=== PATIENT | male | born 1960 | race Caucasian/White ===

== ENCOUNTER 2024-03-19 00:30 | Emergency (ER) | payer BC, SELFPAY ==
[2024-03-19] VITALS (18 sets, daily range): BP systolic 147–174; BP diastolic 75–113
[2024-03-19] MEDS: ADRENALIN 0.299999999999999989 MG IM (00:59)
[2024-03-19] MEDS: BENADRYL 50 MG IV (01:01)
[2024-03-19] MEDS: SOLU-MEDROL PF 125 MG IV (01:05)
[2024-03-19] MEDS: PEPCID 20 MG IV (01:08)
[2024-03-19 01:25] LABS: % Basophils 0.5 % (0-2); % Eosinophils 1.2 % (0-6); % Immature Granulocytes 0.3 % (0-0.5); % Lymphocytes 19.9 % (20.5-51.1); % Monocytes 8.2 % (1.7-9.3); % Neutrophils 69.9 % (42.2-75.2); Absolute Basophils 0.1 10^3/uL (0-0.2); Absolute Eosinophils 0.1 10^3/uL (0-0.7); Absolute Lymphocytes 1.9 10^3/uL (1.2-3.4); Absolute Monocytes 0.8 10^3/uL (0.1-0.6); Absolute Neutrophils 6.7 10^3/uL (1.4-6.5); Hematocrit 42.6 % (39.0-52.0); Hemoglobin 15.4 g/dL (13.0-18.0); Mean Corp Hgb Conc. 36.2 g/dL (33.0-37.0); Mean Corpuscular Hgb 30.9 pg (27.0-31.0); Mean Corpuscular Volume 85.4 fL (80.0-94.0); Mean Platelet Volume 10.1 fL (7.4-10.4); Nucleated Red Blood Cells % 0 % (-); Platelet Count 244 10^3/uL (130-400); Red Blood Cell Count 4.99 10^6/uL (4.70-6.10); Red Cell Dist. Width 13.3 % (11.5-14.5); White Blood Cell Count 9.7 10^3/uL (4.8-10.8)
[2024-03-19 01:38] LABS: ALT (SGPT) 25 U/L (0-50); AST (SGOT) 27 U/L (17-59); Albumin 4.6 g/dl (3.5-5.0); Blood Urea Nitrogen 14 mg/dl (9-20); Carbon Dioxide 28 mmol/L (22-30); Glucose 120 mg/dl (70-99); Potassium 3.1 mmol/L (3.5-5.1); Total Bilirubin 0.6 mg/dl (0.2-1.3); Total Protein 7.1 g/dl (6.3-8.2); eGFR > 60.00
[2024-03-19] MEDS: NSS 500 IV (02:13)
[2024-03-19 02:23] LABS: Alkaline Phosphatase 63 U/L (38-126); Calcium 10.6 mg/dl (8.4-10.2); Chloride 99 mmol/L (98-107); Sodium 137 mmol/L (135-145)
--- NOTE | 2024-03-19 02:27 | ED.GENMED ---
History of Present Illness
General
Chief Complaint: Swelling
Source: patient and spouse
Exam Limitations: none
Time Seen by Provider: 03/19/24 00:42
Nursing documentation reviewed up to this point in time: agreed with
Travel History
Have you had any contact with someone who has COVID-19?: No
Do you have any symptoms of coronavirus? Fever > 100 degrees, chills, cough, shortness of breath, sore throat, loss of taste or smell, muscle aches, or headache?: No
History of Present Illness
History of Present Illness:
63-year-old male with a past medical history of hypertension who presents to the emergency room for evaluation of tongue swelling. Patient reports onset of symptoms about 90 minutes prior to arrival and they have been constant and he feels somewhat
worsening since that time. He reports his tongue feels very dry and he has some trouble swallowing. He has not noticed any sensation of swelling in his throat and denies shortness of breath. He denies any swelling of the lips. He denies any rash
or pruritus. Denies any abdominal pain, nausea, vomiting. He denies any shortness of breath or wheezing. He denies any other complaints. He has never had the symptoms before. He denies any new medications. He says that he had some beef with
mushrooms and onions tonight which his made at home and this is not a new meal for him. No unusual food ingestions. No family history of similar reactions. He does take losartan chronically for his blood pressure.
Review of Systems
Review of Systems
All Other Systems: ROS reviewed and negative except as documented in HPI and ROS
Constitutional: Denies fever or chills
EENT: Reports other (Sensation of tongue swelling); Denies sore throat or runny nose
Respiratory: Denies cough or trouble breathing
Cardiac: Denies chest pain
ABD/GI: Denies abdominal pain, nausea or vomiting
: Denies flank pain
Skin: Denies itching or rash
Neurological: Denies dizzy or headache
Phy Exam
Physical Exam
Physical Exam:
General: Awake, alert, anxious but not in distress
Head: Normocephalic, atraumatic
Eyes: Conjunctiva normal, pupils equal round and reactive to light bilaterally
Throat: Airway intact, handling secretions, very slight swelling of the tongue but visible uvula which is midline with no swelling; no swelling of the lips; no stridor
Neck: Trachea midline, supple without meningismus
Lungs: Clear to auscultation bilaterally, no wheezing, rales, rhonchi
Heart: Tachycardia with regular rhythm, no murmurs, gallops, or rubs
Abd: Soft, non distended, nontender
Neuro: No gross deficits
Skin: no rash, no hives or provided
Extremities: No edema in extremities, warm and well-perfused
Scores
Heart Failure Risk
Heart Failure Risk Score: Not Applicable
Heart Score for Chest Pain Patients
STEMI patient?: Not applicable
Withdrawal Assessment of Alcohol
Withdrawal Assessment Completed?: Not applicable
Course
Orders/Labs/Results
Orders:
Orders
03/19/24 00:50
Diphenhydramine [Benadryl] 50 mg IV NOW STA
Famotidine [Pepcid] 20 mg IV NOW STA
MethylPREDNISolone PF [Solu-Medrol Pf] 125 mg IV NOW STA
03/19/24 00:51
EPINEPHrine PF [Adrenalin] 0.3 mg IM NOW STA
03/19/24 01:15
Complete Blood Count/With Diff Urgent
03/19/24 01:16
Comprehensive Metabolic Panel Urgent
03/19/24 02:10
0.9% Sodium Chloride 500 ml [Nss] 500 ml IV BOLUS
03/19/24 02:53
Potassium Chloride [KCl] 40 meq 0.9% Sodium Chloride 250 ml [Nss] 250 ml IV NOW
Abnormal Lab Results
03/19/24 03/19/24
01:15 01:16
Absolute Neuts (auto) 6.7 H 10^3/uL
(1.4-6.5)
Absolute Monos (auto) 0.8 H 10^3/uL
(0.1-0.6)
Lymphocytes % 19.9 L %
(20.5-51.1)
Potassium 3.1 L mmol/L
(3.5-5.1)
Glucose 120 H mg/dl
(70-99)
Calcium 10.6 H mg/dl
(8.4-10.2)
03/19/24 01:15
03/19/24 01:16
Vital Signs
Initial and Last Documented VS:
Initial Vital Signs
Temp Pulse Resp BP Pulse Ox
36.7 C 125 20 174/113 95
03/19/24 00:33 03/19/24 00:33 03/19/24 00:33 03/19/24 00:33 03/19/24 00:33
Last Documented Vital Signs
Temp Pulse Resp BP Pulse Ox
36.7 C 84 26 163/90 90
03/19/24 00:33 03/19/24 06:15 03/19/24 06:15 03/19/24 06:00 03/19/24 06:00
MDM/Problems Addressed
Differential Diagnosis Includes:
Angioedema, anaphylaxis, dystonic reaction
MDM/Problems Addressed:
63-year-old male presents for evaluation of tongue swelling that started 90 minutes prior to arrival and feels like is getting worse. Associated with some trouble swallowing. No shortness of breath or sensation of throat tightness. Hypertensive
and tachycardic�appears quite anxious; vital signs otherwise normal. Physical exam as above. He does have some slight swelling of the tongue but widely visible posterior oropharynx midline uvula with no edema, no stridor, handling secretions.
Suspect acute angioedema could be related to ARB. Much lower suspicion for allergic reaction/anaphylaxis with no wheezing, no GI symptoms�nevertheless given swelling of the tongue and potential for progression to airway compromise will treat with
steroids, antihistamines, epinephrine. I think at this point he is protecting his airway and there is no sign of airway compromise but will need to have very low threshold for intubation and aggressive airway management.
Clinical reassessment after 20 minutes patient has had no progression of his symptoms, exam unchanged. Continue to monitor.
Reassessment patient still with no progression, resting comfortably although still appears somewhat anxious. Exam unchanged. Continue to monitor.
Basic screening labs returned CBC unremarkable, CMP did show some hypokalemia will replete IV while we are monitoring his airway. His clinical exam is unchanged, tongue appears essentially unchanged or perhaps slightly improved from initial
assessment.
Clinical reassessment swelling improving subjectively and slightly improved objectively. Continue to monitor.
Observed here in the emergency room for 6+ hours�patient says symptoms have greatly improved he has no shortness of breath, objectively his tongue swelling has essentially normalized. His vital signs are all within acceptable range including a
heart rate in the 80s, respiratory rate 18, pulse ox 95% on room air on my clinical reassessment. I spoke to the patient at length�I offered admission for further observation versus discharge with strict return precautions if he feels symptoms
begin to worsen once again. Patient prefers discharge at this point. Advised him to avoid losartan also to avoid aspirin and NSAIDs and to follow-up with his primary care physician to discuss alternate blood pressure medication. He indicated
understanding. We did speak in detail about return precautions including if he feels his tongue is beginning to swell again at any point or if he feels any tightness in his throat or difficulty breathing or any other concerning symptoms.
Chronic conditions affecting care:
Hypertension requiring ARB�presenting with likely ARB related angioedema
Acute Exacerbation and/or Progression of Chronic Illness: HTN
*Pulse Oximetry
Patient hypoxic: no
*Critical Care Note
Total Time (30-74mins, 75-104mins- exclusive of procedures): 37
comment:
Critical care statement: A total of 37 minutes of critical care time was provided for this patient. This includes management of unstable vital signs, evaluation of the patient at bedside, frequent reassessment, discussion with
consultants/hospitalist, and review of pertinent medical records. This time was separate from time utilized to perform any aforementioned documented procedures
Data Reviewed
Source: patient and spouse
ED Attending Note
-
Portions of this chart may have been created with voice recognition software.� Occasional wrong word or��sound alike� substitutions may have occurred due to the inherent limitations of voice recognition software.
Discharge Plan
Departure
Patient Disposition: Home (Routine Discharge)
Date of Disposition: 03/19/24
Time of Disposition: 06:35
Patient with high blood pressure during this ER visit?: No
Discharge Problem:
Angioedema
Instructions: Angioedema
Prescriptions:
New
prednisone 50 mg tablet
50 mg PO DAILY Qty: 4 0RF
Referrals:
Charbel Álvarez DO [Family Provider] - Follow up in 2-3 days
Activity Restrictions/Additional Instructions:
You were seen in the emergency room due to swelling in your tongue. We think you had an episode of angioedema and that is related to your blood pressure medication (losartan). You should immediately discontinue this medication. You should call
your primary doctor today to schedule a follow-up appointment soon as possible to discuss an alternative medication. You were observed here in the emergency room for over 6 hours with improvement in your symptoms. We are discharging you home but
if you notice at any point your symptoms are beginning to worsen or if you develop any new symptoms particularly any trouble breathing or tightness in your throat you should immediately return to the emergency room.
Thank you for visiting the Emergency Department at [facility].
1. Please schedule a follow up appointment as directed. Call first thing tomorrow morning to make an appointment.
2. If indicated, please take your medications as instructed and indicated on discharge paperwork.
3. If any of your symptoms do not improve, or persist, or become more severe within 6-12 hours, please return to the emergency department for further care.
4. Please return to the emergency department if you develop a headache, neck pain/stiffness, fever greater than 100.4F, chest pain, shortness of breath, persistent nausea, vomiting, slurred speech, difficulty walking, numbness/tingling, weakness,
signs of infection or any other symptoms that are worrisome to you.
Please call [phone] if you have any questions.
Interventions
Interventions:
*General Assessment Last Done: 03/19/24 00:47
*Neglect/Abuse Screening Last Done: 03/19/24 00:33
ED- Fall Risk Assessment Last Done: 03/19/24 00:47
*ED COVID-19 Vaccine History Last Done: 03/19/24 00:47
ED- Cardiac Assessment Last Done: 03/19/24 00:47
ED- Pulmonary Assessment Last Done: 03/19/24 00:47
ED-Skin Assessment Last Done: 03/19/24 00:47
Discharge Date and Time
Print Language: MONGOLIAN
[2024-03-19] MEDS: KCL 270 MEQ IV (03:00)
== END 2024-03-19 07:05 | disposition home or self-care (01) ==
LOC: EMR 00:30
PROVIDERS: EMERGENCY PHYSICIAN Emergency Medicine; FAMILY PHYSICIAN Family Medicine
DX: T78.3XXA Angioneurotic edema, initial encounter (principal); X58.XXXA Exposure to other specified factors, initial encounter; E87.6 Hypokalemia; I10 Essential (primary) hypertension
CPT/HCPCS: 99283; 96374; 96375; 96361; 80053; 85025

== ENCOUNTER 2024-03-31 01:45 | Emergency (ER) | payer BC, SELFPAY ==
[2024-03-31 01:47] VITALS: BP 212/119
[2024-03-31 02:13] VITALS: BMI 30.8
--- NOTE | 2024-03-31 02:14 | ED.GENMED ---
History of Present Illness
General
Chief Complaint: Oral/Mouth Problem
Source: patient
Exam Limitations: none
Time Seen by Provider: 03/31/24 01:56
Nursing documentation reviewed up to this point in time: agreed with
Travel History
Have you had any contact with someone who has COVID-19?: No
Do you have any symptoms of coronavirus? Fever > 100 degrees, chills, cough, shortness of breath, sore throat, loss of taste or smell, muscle aches, or headache?: No
History of Present Illness
History of Present Illness:
63-year-old male presents to the emergency department complaining of tongue swelling around 12:30 AM. Did not take any fluid. He has not had this happen 3 times in the past several weeks. He received steroids which did help in the past.
Past History
Past History
ED Past Medical History: HTN
ED Past Surgical History: Urological (Prostate)
Social History
Tobacco: Non-smoker
Alcohol: None
Drug: None
Review of Systems
Review of Systems
Allergies reviewed?: Yes
All Other Systems: Not applicable
Constitutional: Reports no symptoms
EENT: Reports mouth swelling
Respiratory: Reports no symptoms; Denies trouble breathing
Cardiac: Reports no symptoms
ABD/GI: Reports no symptoms
: Reports no symptoms
Musculoskeletal: Reports no symptoms
Skin: Reports no symptoms
Neurological: Reports no symptoms
Endocrine: Reports no symptoms
Hematologic/Lymphatic: Reports no symptoms
Psychiatric: Reports no symptoms
Phy Exam
Physical Exam
Physical Exam:
Physical Exam
General: no apparent distress, not acutely ill
Neck: supple. no meningeal signs. normal posterior pharynx
Heart: s1/s2 regular rate and rhythm, no murmur. equal radial
pulses.
HEENT: Pupils equal round reactive to light, EOMI, tongue swelling
Lungs: no acute respiratory distress. clear bilaterally
Abdomen: normal bowel sounds. not tender. no CVAT
Neuro: alert and oriented. no focal neurological deficits cranial nerves II through XII intact
Skin: no rash
Psychiatric: well kept. interactive and cooperative
Extremities: no edema. no calf tenderness. negative homans. good distal pulses
Course
Orders/Labs/Results
Orders:
Orders
03/31/24 02:14
IV Insert/Care/Rem.- Treatment PRN
Dexamethasone Sod Phosphate [Decadron] 10 mg IV NOW STA
Vital Signs
Initial and Last Documented VS:
Initial Vital Signs
Temp Pulse Resp BP Pulse Ox
97.8 F 104 22 212/119 98
03/31/24 01:47 03/31/24 01:47 03/31/24 01:47 03/31/24 01:47 03/31/24 01:47
Last Documented Vital Signs
Temp Pulse Resp BP Pulse Ox
97.8 F 90 16 135/91 92
03/31/24 01:47 03/31/24 04:00 03/31/24 02:33 03/31/24 04:00 03/31/24 04:00
MDM/Problems Addressed
Differential Diagnosis Includes:
Airway obstruction, angioedema
MDM/Problems Addressed:
63-year-old male with tongue angioedema, stable ED course. Mild improvement after IV Decadron. Treat with prednisone taper.
Chronic conditions affecting care: HTN
*Pulse Oximetry
Patient hypoxic: no
*EKG
Interpreted by ED Provider?: NA
*Seal Delivery Vehicle Team Technician Interpretation
Rate: Seal Delivery Vehicle Team Technician- N/A
*Critical Care Note
Total Time (30-74mins, 75-104mins- exclusive of procedures): Not Applicable
Patient Management
Social determinants of health affecting care: Living situation
Escalation/DeEscalation of care consider admission/obs:
Admit not indicated
ED Attending Note
-
Portions of this chart may have been created with voice recognition software.� Occasional wrong word or��sound alike� substitutions may have occurred due to the inherent limitations of voice recognition software.
Discharge Plan
Departure
Patient Disposition: Home (Routine Discharge)
Date of Disposition: 03/31/24
Time of Disposition: 05:22
Patient with high blood pressure during this ER visit?: Yes
Condition: Good
Discharge Problem:
Angioedema
Instructions: Angioedema
Prescriptions:
New
prednisone 10 mg Tablet
See Rx Instructions .ROUTE .COMPLEX Qty: 45 0RF
Rx Instructions:
Take By Mouth:
50 mg daily x3 days, 40 mg daily x3 days,
30 mg daily x3 days, 20 mg daily x3 days,
10 mg daily x3 days
No Action
lamotrigine 150 mg Tablet
150 mg PO DAILY
Rx Instructions:
with 200mg = 350mg
amlodipine 5 mg Tablet
5 mg PO DAILY
aspirin 81 mg Tablet,Delayed Release (Dr/Ec)
81 mg PO DAILY
quetiapine [Seroquel] 100 mg Tablet
100 mg PO DAILY
lamotrigine 100 mg Tablet
200 mg PO DAILY
Rx Instructions:
with 150mg = 350mg
Referrals:
Charbel Álvarez DO [Family Provider] - Call in 1-3 days for appt
Interventions
Interventions:
*Risk Screen - Suicide Last Done: 03/31/24 01:47
*General Assessment Last Done: 03/31/24 02:13
*Neglect/Abuse Screening Last Done: 03/31/24 01:47
*ED COVID-19 Vaccine History Last Done: 03/31/24 02:10
Discharge Date and Time
Print Language: SLOVAK
[2024-03-31] MEDS: DECADRON 10 MG IV (02:30)
[2024-03-31 02:33] VITALS: BP 165/94
--- NOTE | 2024-03-31 02:46 | EDRN ---
This is third time in three weeks that pt has finished steroids and his tongue has swelled up again. Pt says he was taken off losartan and started on amlodipine because it was thought the losartan was causing his tongue to swell. Pt finished third
course of steroids on Monday and his tongue started swelling around 0030. Pt able to speak in full sentences, handles oral secretions. No sob, cp. No medications taken for this prior to arrival.
[2024-03-31 03:00] VITALS: BP 149/91
[2024-03-31 04:00] VITALS: BP 135/91
[2024-03-31 05:30] VITALS: BP 156/88
== END 2024-03-31 05:33 | disposition home or self-care (01) ==
LOC: EMR 01:45
PROVIDERS: EMERGENCY PHYSICIAN Emergency Medicine; FAMILY PHYSICIAN Family Medicine
DX: T78.3XXA Angioneurotic edema, initial encounter (principal); X58.XXXA Exposure to other specified factors, initial encounter; I10 Essential (primary) hypertension
CPT/HCPCS: 99282; 96374

== ENCOUNTER 2024-04-18 23:21 | Emergency (ER) | payer BC, SELFPAY ==
[2024-04-18 23:29] VITALS: BP 164/98
--- NOTE | 2024-04-18 23:50 | ED.GENMED ---
History of Present Illness
<Robert Redman MD - Last Filed: 04/19/24 03:47>
General
Chief Complaint: Allergic Reaction
Source: patient
Exam Limitations: none
Time Seen by Provider: 04/18/24 23:45
Nursing documentation reviewed up to this point in time: agreed with
History of Present Illness
History of Present Illness:
63-year-old male with a past medical history of hypertension presents to the emergency room for evaluation of tongue swelling. This is his third visit to this emergency room and fourth visit overall in the past month with similar symptoms. He
initially presented with significant swelling of the tongue was observed for 6+ hours here in the emergency room, treated with steroids, epinephrine, Benadryl/Pepcid and ultimately his symptoms improved and he was discharged. At that time felt to
be related to his ARB and this was discontinued and he was switched to amlodipine. He returned 12 days later with similar symptoms although not as severe. He was treated with steroids again with improvement and was discharged with steroid taper.
He says that when the steroid taper finished he once again had return of symptoms this time went to [facility] was again observed and treated with steroids and discharged. He does report that during his stay there he had a CT of his neck
that showed no acute pathology in the neck but he was incidentally found to have a small thoracic aortic aneurysm for which he is being worked up as an outpatient. He finished a 15-day taper on Monday. Symptoms returned this evening he describes a
sensation of 'all of the fluid being sucked out of my tongue' with his tongue feels very dry, tingly and swollen. He denies any shortness of breath or tightness in his throat. He denies any rash. Denies any abdominal pain, nausea/vomiting.
Denies any medication changes aside from switching losartan for amlodipine and steroid course as described above. He insists no family history of angioedema.
Past History
<Robert Redman MD - Last Filed: 04/19/24 03:47>
Past History
ED Past Medical History: HTN
ED Past Surgical History: Urological (Prostate)
Social History
Tobacco: Non-smoker
Alcohol: None
Drug: None
Review of Systems
<Robert Redman MD - Last Filed: 04/19/24 03:47>
Review of Systems
All Other Systems: ROS reviewed and negative except as documented in HPI and ROS
EENT: Reports other (Tongue swelling); Denies sore throat or runny nose
Respiratory: Denies cough or trouble breathing
Cardiac: Denies chest pain
ABD/GI: Denies abdominal pain, nausea or vomiting
Skin: Denies rash
Neurological: Denies dizzy or headache
Phy Exam
<Robert Redman MD - Last Filed: 04/19/24 03:47>
Physical Exam
Physical Exam:
General: Awake, alert, oriented x3; anxious but in no acute distress
Head: Normocephalic, atraumatic
Eyes: Conjunctiva normal
Throat: Airway intact, handling secretions, slight tongue swelling unable to visualize uvula without the aid of a tongue depressor, midline uvula with no edema
Neck: Trachea midline, supple without meningismus
Lungs: Clear to auscultation bilaterally, no wheezing, rales, rhonchi
Heart: Regular rate and rhythm, no murmurs, gallops, or rubs
Neuro: No gross deficits
Skin: no rash or hives
Extremities: No edema in extremities, warm and well-perfused
Scores
<Robert Redman MD - Last Filed: 04/19/24 03:47>
Heart Failure Risk
Heart Failure Risk Score: Not Applicable
Heart Score for Chest Pain Patients
STEMI patient?: Not applicable
Withdrawal Assessment of Alcohol
Withdrawal Assessment Completed?: Not applicable
Course
<Robert Redman MD - Last Filed: 04/19/24 03:47>
Orders/Labs/Results
Orders:
Orders
04/18/24 23:46
Diphenhydramine [Benadryl] 25 mg IV NOW STA
Famotidine [Pepcid] 20 mg IV NOW STA
MethylPREDNISolone PF [Solu-Medrol Pf] 125 mg IV NOW STA
04/18/24 23:47
Complete Blood Count/With Diff Urgent
Comprehensive Metabolic Panel Urgent
04/19/24 02:50
Diphenhydramine [Benadryl] 25 mg IV NOW STA
04/19/24 03:50
Add On- LAB Urgent
Tests Added?: Complement C4
04/19/24 04:00
Flush (0.9% Sodium Chloride) [Flush (Nss)] See Dose Instructions IV PER PROTOCOL
04/19/24 04:11
Complement C4 Urgent
Abnormal Lab Results
04/19/24
00:00
RBC 4.57 L 10^6/uL
(4.70-6.10)
MCH 31.3 H pg
(27.0-31.0)
Potassium 3.4 L mmol/L
(3.5-5.1)
Glucose 162 H mg/dl
(70-99)
04/19/24 00:00
04/19/24 00:00
Vital Signs
Initial and Last Documented VS:
Initial Vital Signs
Temp Pulse Resp BP Pulse Ox
97.8 F 120 24 164/98 95
04/18/24 23:29 04/18/24 23:29 04/18/24 23:29 04/18/24 23:29 04/18/24 23:29
Last Documented Vital Signs
Temp Pulse Resp BP Pulse Ox
97.8 F 98 22 172/100 93
04/18/24 23:29 04/19/24 05:15 04/19/24 05:15 04/19/24 05:14 04/19/24 05:15
<Gibson Hatch, DO - Last Filed: 04/19/24 05:36>
Orders/Labs/Results
Orders:
Orders
04/18/24 23:46
Diphenhydramine [Benadryl] 25 mg IV NOW STA
Famotidine [Pepcid] 20 mg IV NOW STA
MethylPREDNISolone PF [Solu-Medrol Pf] 125 mg IV NOW STA
04/18/24 23:47
Complete Blood Count/With Diff Urgent
Comprehensive Metabolic Panel Urgent
04/19/24 02:50
Diphenhydramine [Benadryl] 25 mg IV NOW STA
04/19/24 03:50
Add On- LAB Urgent
Tests Added?: Complement C4
04/19/24 04:00
Flush (0.9% Sodium Chloride) [Flush (Nss)] See Dose Instructions IV PER PROTOCOL
04/19/24 04:11
Complement C4 Urgent
Abnormal Lab Results
04/19/24
00:00
RBC 4.57 L 10^6/uL
(4.70-6.10)
MCH 31.3 H pg
(27.0-31.0)
Potassium 3.4 L mmol/L
(3.5-5.1)
Glucose 162 H mg/dl
(70-99)
04/19/24 00:00
04/19/24 00:00
Vital Signs
Initial and Last Documented VS:
Initial Vital Signs
Temp Pulse Resp BP Pulse Ox
97.8 F 120 24 164/98 95
04/18/24 23:29 04/18/24 23:29 04/18/24 23:29 04/18/24 23:29 04/18/24 23:29
Last Documented Vital Signs
Temp Pulse Resp BP Pulse Ox
97.8 F 98 22 172/100 93
04/18/24 23:29 04/19/24 05:15 04/19/24 05:15 04/19/24 05:14 04/19/24 05:15
<Robert Redman MD - Last Filed: 04/19/24 03:47>
MDM/Problems Addressed
Differential Diagnosis Includes:
Angioedema, anaphylaxis, dystonia
MDM/Problems Addressed:
63-year-old male presents for evaluation of tongue swelling once again�this is his fourth episode in the past month. Has been treated with steroids which seems to improve his symptoms. Nothing to suggest anaphylaxis�no shortness of breath, no
wheezing, no GI symptoms, no rash or cutaneous symptoms. Did not respond to epinephrine in the past. He has responded to steroids. Will treat with IV steroid, can trial Pepcid and Benadryl as well but I do not think epinephrine is indicated at
this point. Will check basic screening labs and monitor with frequent reassessments.
Reassessment patient feeling unchanged, exam seems essentially stable. Continue to monitor.
Reassessment patient feels slightly improved, posterior oropharynx more visible can visualize top portion of the uvula without tongue depressor. Continue to monitor.
Screening labs reviewed CBC and CMP essentially unremarkable.
Reassessment patient feels his symptoms may actually be starting to worsen once again subjectively. Objectively exam appears unchanged, will reassess.
Clinical reassessment tongue appears similar to initial assessment, swollen and cannot quite visualize the uvula without aid of a tongue depressor. He is handling secretions no other airway swelling, no voice change. This is very unusual for
patient to have repeated episodes of angioedema over such a short period of time. I wonder if this is truly angioedema or if this could be something else�one consideration would be lingual dystonia�patient is on Seroquel which can be associated
with dystonia. This would explain his improvement after initial medications which included Benadryl. We can try another dose of Benadryl and see if this improves. I do think that admission at this point is warranted for close airway monitoring.
It may be styles to consider specialist consultation given these repeated episodes. Case discussed with hospitalist for admission.
After initial discussion about admission patient now requesting to be observed here for a bit longer to see if he improves prior to admission to the hospital. Will continue to observe here but if he continues to have symptoms would have a low
threshold for admission. If he does show significant improvement can consider discharge on prednisone would have him start daily cetirizine and refer to hospice patient care secretary.
Acute Exacerbation and/or Progression of Chronic Illness:
Acutely hypertensive suspect related to anxiety�will monitor but no indication for emergent antihypertensive for now
Acute Exacerbation and/or Progression of Chronic Illness: HTN
<Robert Redman MD - Last Filed: 04/19/24 03:47>
*Pulse Oximetry
Patient hypoxic: no
*Critical Care Note
Total Time (30-74mins, 75-104mins- exclusive of procedures): Not Applicable
Data Reviewed
Source: patient and records
Prescriptions/Medications Considered But Not Given:
Considered epinephrine as above
<Robert Redman MD - Last Filed: 04/19/24 03:47>
Patient Management
Discussion with other providers: Hospitalist (Discussed with hospitalist)
Escalation/DeEscalation of care consider admission/obs:
Admission indicated
<Gibson Hatch DO - Last Filed: 04/19/24 05:36>
Update Note
Update Note:
04/19/2024 0535 AM into see the patient. He is resting comfortably and wishes to be discharged home. Patient absolutely does not wish to stay in the hospital for further observation. He states that the swelling has improved greatly. He has no
respiratory complaints or concerns. Patient will follow-up with an hospice patient care secretary. I did discuss return to ER instructions with him. He has no further questions. I feel that he is good understanding of discharge instructions and is being discharged
home in improved condition.
ED Attending Note
<Robert Redman MD - Last Filed: 04/19/24 03:47>
-
Portions of this chart may have been created with voice recognition software.� Occasional wrong word or��sound alike� substitutions may have occurred due to the inherent limitations of voice recognition software.
Discharge Plan
Departure
Patient Disposition: Home (Routine Discharge)
Date of Disposition: 04/19/24
Time of Disposition: 05:34
Admit to doctor: Zamzam
Presentation/result/management discussed w/ accepting MD/DO: Hospitalist
Patient with high blood pressure during this ER visit?: No
Discharge Problem:
Tongue swelling
Instructions: Angioedema
Prescriptions:
New
prednisone 10 mg Tablet
See Rx Instructions .ROUTE .COMPLEX Qty: 45 0RF
Rx Instructions:
Take By Mouth:
50 mg daily x3 days, 40 mg daily x3 days,
30 mg daily x3 days, 20 mg daily x3 days,
10 mg daily x3 days
cetirizine 10 mg tablet
10 mg PO DAILY Qty: 30 0RF
No Action
lamotrigine 150 mg Tablet
150 mg PO DAILY
Rx Instructions:
with 200mg = 350mg
amlodipine 5 mg Tablet
5 mg PO DAILY
aspirin 81 mg Tablet,Delayed Release (Dr/Ec)
81 mg PO DAILY
quetiapine [Seroquel] 100 mg Tablet
100 mg PO DAILY
lamotrigine 100 mg Tablet
200 mg PO DAILY
Rx Instructions:
with 150mg = 350mg
multivitamin Tablet
1 tab PO DAILY
Referrals:
Charbel Álvarez DO [Family Provider] - Call in 1-3 days for appt
Ramakrishna Mahmood MD [[facility]] - Call in 1-3 days for appt
Activity Restrictions/Additional Instructions:
Thank you for visiting the Emergency Department at [facility].
1. Please schedule a follow up appointment as directed. Call first thing tomorrow morning to make an appointment.
2. If indicated, please take your medications as instructed and indicated on discharge paperwork.
3. If any of your symptoms do not improve, or persist, or become more severe within 6-12 hours, please return to the emergency department for further care.
4. Please return to the emergency department if you develop a headache, neck pain/stiffness, fever greater than 100.4F, chest pain, shortness of breath, persistent nausea, vomiting, slurred speech, difficulty walking, numbness/tingling, weakness,
signs of infection or any other symptoms that are worrisome to you.
Please call [phone] if you have any questions.
Interventions
Interventions:
*Risk Screen - Suicide Last Done: 04/18/24 23:29
*General Assessment Last Done: 04/18/24 23:40
*Neglect/Abuse Screening Last Done: 04/18/24 23:29
*ED COVID-19 Vaccine History Last Done: 04/18/24 23:40
ED- Cardiac Assessment Last Done: 04/18/24 23:40
ED- Pulmonary Assessment Last Done: 04/18/24 23:40
ED-Skin Assessment Last Done: 04/18/24 23:40
Discharge Date and Time
Print Language: LAO
[2024-04-18] MEDS: BENADRYL 25 MG IV (23:54)
[2024-04-18] MEDS: SOLU-MEDROL PF 125 MG IV (23:54)
[2024-04-18] MEDS: PEPCID 20 MG IV (23:54)
[2024-04-19 00:23] LABS: ALT (SGPT) 28 U/L (0-50); AST (SGOT) 23 U/L (17-59); Albumin 4.4 g/dl (3.5-5.0); Alkaline Phosphatase 54 U/L (38-126); Blood Urea Nitrogen 17 mg/dl (9-20); Calcium 8.8 mg/dl (8.4-10.2); Carbon Dioxide 27 mmol/L (22-30); Chloride 103 mmol/L (98-107); Glucose 162 mg/dl (70-99); Potassium 3.4 mmol/L (3.5-5.1); Sodium 138 mmol/L (135-145); Total Bilirubin 0.3 mg/dl (0.2-1.3); Total Protein 6.4 g/dl (6.3-8.2); eGFR > 60.00
[2024-04-19 00:43] LABS: % Basophils 0.6 % (0-2); % Eosinophils 1.6 % (0-6); % Immature Granulocytes 0.5 % (0-0.5); % Lymphocytes 23.7 % (20.5-51.1); % Monocytes 6.9 % (1.7-9.3); % Neutrophils 66.7 % (42.2-75.2); Absolute Eosinophils 0.1 10^3/uL (0-0.7); Absolute Lymphocytes 1.5 10^3/uL (1.2-3.4); Absolute Monocytes 0.4 10^3/uL (0.1-0.6); Absolute Neutrophils 4.1 10^3/uL (1.4-6.5); Hematocrit 41.2 % (39.0-52.0); Hemoglobin 14.3 g/dL (13.0-18.0); Mean Corp Hgb Conc. 34.7 g/dL (33.0-37.0); Mean Corpuscular Hgb 31.3 pg (27.0-31.0); Mean Corpuscular Volume 90.2 fL (80.0-94.0); Mean Platelet Volume 10.1 fL (7.4-10.4); Nucleated Red Blood Cells % 0 % (-); Platelet Count 221 10^3/uL (130-400); Red Blood Cell Count 4.57 10^6/uL (4.70-6.10); Red Cell Dist. Width 13.2 % (11.5-14.5); White Blood Cell Count 6.2 10^3/uL (4.8-10.8)
[2024-04-19 02:00] VITALS: BP 146/92
[2024-04-19] MEDS: BENADRYL 25 MG IV (03:06)
--- NOTE | 2024-04-19 03:11 | HPS.HSE ---
Family Physician
-
Family Physician: Charbel Bartlett Files
Chief Complaint
-
tongue swelling
History of Present Illness
Mr. Martinez Rondon is a 63 yo man with hx HTN who presents to the ER with his 4th episode of tongue swelling in the past month. Patient was seen in the ER on 03/31, diagnosed with angioedema and discharged on a prednisone taper.
Patient reports after each ER visit his tongue swelling had significantly resolved as well as feeling of dryness. He continues to have it now but asking if he can be observed in the ER another couple of hours and see if he can go home in the
morning.
Patient denies difficulty breathing. No lip swelling. No chest pain or chest tightness. He completed his prednisone taper as prescribed last admission. He stopped taking Losartan one month ago.
No rash. No abdominal pain. No nausea/vomiting/diarrhea.
Medical History
Past Medical History
Past Medical History: Reports HTN
Past Surgical History: Reports Other
Social History
Tobacco: Non-smoker
Alcohol: None
Family History
Family History: Not pertinent
Allergies / Home Medications
Allergies reflects when Allergies were last updated in [facility].
Home Medications with original date entered in [facility]
Allergy/Medication List:
Allergies
Allergy/AdvReac Type Severity Reaction Status Date / Time
losartan Allergy Tongue Verified 04/18/24 23:32
Swelling
sertraline [From Zoloft] Allergy artie Verified 04/18/24 23:32
Home Medications
amlodipine 5 mg tablet 5 mg PO DAILY 03/31/24
aspirin 81 mg tablet,delayed release 81 mg PO DAILY 03/31/24
lamotrigine 100 mg tablet 200 mg PO DAILY 03/31/24
lamotrigine 150 mg tablet 150 mg PO DAILY 03/31/24
quetiapine 100 mg tablet (Seroquel) 100 mg PO DAILY 03/31/24
multivitamin 1 tab PO DAILY 04/19/24
prednisone 10 mg tablet See Rx Instructions .Route .COMPLEX #45 tabs 04/19/24
*med rec needs to be updated
Review of Systems
-
History Source: Patient
A 12 point ROS was completed and negative except as noted: Yes
Physical Exam
Vital Signs
Vital Signs
Temp Pulse Resp BP Pulse Ox
97.8 F 98 18 146/92 91
04/18/24 23:29 04/19/24 02:15 04/19/24 02:15 04/19/24 02:00 04/19/24 02:15
Physical Exam
General: No Apparent Distress and Conversant
HEENT: PERRLA and Other (no stridor; tongue swollen )
Respiratory: Clear; No Wheezes
Cardiac: S1/S2 and Regular Rhythm
GI: Soft and Non Tender
Musculoskeletal: No Edema
Skin: Warm and Dry
Neuro: AO x 3
Psych: Calm
Laboratory Results
-
04/19/24 00:00
04/19/24 00:00
Laboratory Results
Total Bilirubin 0.3 mg/dl (0.2-1.3) 04/19/24 00:00
AST 23 U/L (17-59) 04/19/24 00:00
ALT 28 U/L (0-50) 04/19/24 00:00
Alkaline Phosphatase 54 U/L (38-126) 04/19/24 00:00
Data Reviewed
-
Diagnostic Radiology: Report Reviewed by me
Lab Data: Labs Reviewed by me
Impression/Plan
-
Mr. Martinez Rondon is a 63 yo man with hx HTN who presents to the ER with his 4th episode of tongue swelling in the past month.
Triage VS: T 36.6C, P 120, RR 24, BP 164/98, SpO2 95%
LABS: WBC 6.2, Hg 14.3, PLT 221, Na 138, K+ 3.4, Cr 0.9, T. Bili 0.3, AST 23, ALT 28, Alk Phos 54
MAR: IV Pepcid, IV Methylprednisolone 125mg, IV Benadryl 25mg x 2
Angioedema
Tongue Swelling
-patient does not have a compromised airway. He had 4 similar episodes over past month
-offered observation admission, patient would like to wait in ER 2-3 more hours to see if symptoms resolve
-can consider ordering C4
-patient should have an fisheries technician referral [facility] as outpatient
-prednisone taper, daily Loratadine on DC
discussed with Dr. Redman
[2024-04-19 05:14] VITALS: BP 172/100
[2024-04-19 05:32] VITALS: BP 163/96
== END 2024-04-19 05:46 | disposition home or self-care (01) ==
LOC: EMR 23:21
PROVIDERS: EMERGENCY PHYSICIAN Emergency Medicine; FAMILY PHYSICIAN Family Medicine
DX: R22.0 Localized swelling, mass and lump, head (principal); I10 Essential (primary) hypertension
CPT/HCPCS: 99284; 96374; 96375 ×2; 96376; 80053; 85025; 86160

== ENCOUNTER 2024-05-11 01:03 | Emergency (ER) | payer BC, SELFPAY ==
[2024-05-11] VITALS (7 sets, daily range): BP systolic 165–200; BP diastolic 90–110; BMI 31.1
--- NOTE | 2024-05-11 01:36 | EDRN ---
starts with tongue swelling. Pt completed the steroids 2 days ago and now feels like his tongue is swelling. Pt speaking freely. No drooling. Pt can swallow water. No hives noted. Pt is allergic to Losartan
[2024-05-11] MEDS: BENADRYL 25 MG IV (02:13)
[2024-05-11] MEDS: NSS 500 IV (02:13)
[2024-05-11] MEDS: DECADRON 10 MG IV (02:17)
--- NOTE | 2024-05-11 03:53 | ED.GENMED ---
History of Present Illness
General
Chief Complaint: Swelling
Source: patient
Exam Limitations: none
Time Seen by Provider: 05/11/24 01:36
History of Present Illness
History of Present Illness:
63-year-old male who presents with feeling that his tongue is swelling. He states his tongue gets very dry. He recently was tapered down on steroid. Has had several bouts of this angioedema since March. He states he did see an sdet and it is
related to SHAYY/ARB use. He stopped it but he states that he was told he could continue for up to 90 days. Patient states that as his steroids taper down it seems to come back. Denies difficulty swallowing or voice change but just feels like it is
dry. He also admits that they have been following his blood pressure and trying different medications. He states he is on his fourth medication.
Past History
Past History
ED Past Medical History: HTN and Other (Angioedema)
ED Past Surgical History: Urological (Prostate)
Social History
Tobacco: Non-smoker
Alcohol: None
Drug: None
Phy Exam
Physical Exam
Physical Exam:
CONSTITUTIONAL Patient alert and oriented to person, place and time. Well-appearing. Vital signs reviewed.
HEAD atraumatic, normocephalic.
EYES eyelids normal to inspection, Pupils equally round and reactive to light, Extraocular muscles intact, Conjunctiva normal, Sclera normal.
ENT tongue does not appear to be very swollen to me. No lip or posterior pharyngeal swelling. No drooling. No voice change.
NECK normal range of motion, Trachea midline, no jugular venous distention.
RESPIRATORY CHEST No respiratory distress noted, Chest expansion equal, Bilateral breath sounds clear.
CARDIOVASCULAR regular rate and rhythm, Heart sounds normal.
ABDOMEN abdomen nontender, Bowel sounds normal. No distention.
BACK normal inspection, no obvious deformities
UPPER EXTREMITY range of motion normal, Motor strength normal, no cyanosis, no edema.
LOWER EXTREMITY range of motion normal, Motor strength normal, no cyanosis, no edema.
NEURO Speech normal, No focal motor deficits, Irving coma scale 15, Memory normal, Cranial Nerves intact to screening exam.
SKIN skin warm, dry, and normal in color.
PSYCHIATRIC patient oriented to person place and time, Normal affect.
Scores
Heart Failure Risk
Heart Failure Risk Score: Not Applicable
Course
Orders/Labs/Results
Orders:
Orders
05/11/24 02:02
0.9% Sodium Chloride 500 ml [Nss] 500 ml IV BOLUS
Dexamethasone Sod Phosphate [Decadron] 10 mg IV NOW STA
Diphenhydramine [Benadryl] 25 mg IV NOW STA
Vital Signs
Initial and Last Documented VS:
Initial Vital Signs
Pulse Resp BP Pulse Ox
127 24 190/100 96
05/11/24 01:06 05/11/24 01:06 05/11/24 01:06 05/11/24 01:06
Last Documented Vital Signs
Pulse Resp BP Pulse Ox
103 23 180/98 94
05/11/24 03:45 05/11/24 03:45 05/11/24 03:30 05/11/24 03:00
MDM/Problems Addressed
MDM/Problems Addressed:
Angioedema, hypertension
Acute Exacerbation and/or Progression of Chronic Illness: HTN
*Pulse Oximetry
Patient hypoxic: no
*Critical Care Note
Total Time (30-74mins, 75-104mins- exclusive of procedures): Not Applicable
Data Reviewed
Source: patient
Further Testing Considered But Not Given:
Consider labs but do not think they be helpful
Patient Management
Escalation/DeEscalation of care consider admission/obs:
Patient states he feels better after IV meds. Again, voice normal, no drooling, lips and tongue appear normal to my exam. Question whether this is mild and early. He will follow-up with his sdet
ED Attending Note
-
Portions of this chart may have been created with voice recognition software.� Occasional wrong word or��sound alike� substitutions may have occurred due to the inherent limitations of voice recognition software.
Discharge Plan
Departure
Patient Disposition: Home (Routine Discharge)
Date of Disposition: 05/11/24
Time of Disposition: 04:00
Patient with high blood pressure during this ER visit?: Yes
Discharge Problem:
Angioedema
Instructions: Angioedema
Prescriptions:
New
prednisone 10 mg Tablet
See Rx Instructions .ROUTE .COMPLEX Qty: 45 0RF
Rx Instructions:
Take By Mouth:
50 mg daily x3 days, 40 mg daily x3 days,
30 mg daily x3 days, 20 mg daily x3 days,
10 mg daily x3 days
No Action
lamotrigine 150 mg Tablet
150 mg PO DAILY
Rx Instructions:
with 200mg = 350mg
amlodipine 5 mg Tablet
5 mg PO DAILY
aspirin 81 mg Tablet,Delayed Release (Dr/Ec)
81 mg PO DAILY
quetiapine [Seroquel] 100 mg Tablet
100 mg PO DAILY
lamotrigine 100 mg Tablet
200 mg PO DAILY
Rx Instructions:
with 150mg = 350mg
multivitamin Tablet
1 tab PO DAILY
prednisone 10 mg Tablet
See Rx Instructions .ROUTE .COMPLEX Qty: 45 0RF
Rx Instructions:
Take By Mouth:
50 mg daily x3 days, 40 mg daily x3 days,
30 mg daily x3 days, 20 mg daily x3 days,
10 mg daily x3 days
cetirizine 10 mg tablet
10 mg PO DAILY Qty: 30 0RF
Referrals:
Charbel Álvarez DO [Family Provider] -
Activity Restrictions/Additional Instructions:
Please see your sdet in follow-up in the next 3 to 5 days. Return immediately for difficulty swallowing, change in voice, swelling of the tongue or lips, difficulty breathing or any other concerns.
Interventions
Interventions:
*Risk Screen - Suicide Last Done: 05/11/24 01:29
*General Assessment Last Done: 05/11/24 01:29
*Neglect/Abuse Screening Last Done: 05/11/24 01:29
ED- Fall Risk Assessment Last Done: 05/11/24 01:29
*ED COVID-19 Vaccine History Last Done: 05/11/24 01:29
ED- Cardiac Assessment Last Done: 05/11/24 01:29
ED- Pulmonary Assessment Last Done: 05/11/24 01:29
ED-Skin Assessment Last Done: 05/11/24 01:29
Discharge Date and Time
Print Language: JAPANESE
== END 2024-05-11 04:16 | disposition home or self-care (01) ==
LOC: EMR 01:03
PROVIDERS: EMERGENCY PHYSICIAN Emergency Medicine; FAMILY PHYSICIAN Family Medicine
DX: T78.3XXA Angioneurotic edema, initial encounter (principal); X58.XXXA Exposure to other specified factors, initial encounter; I10 Essential (primary) hypertension
CPT/HCPCS: 99284; 96374; 96375; 96361